=== PATIENT | male | born 1980 | race Caucasian/White ===

== ENCOUNTER 2016-11-27 10:52 | Emergency (ER) | payer OTHER ==
[2016-11-27] MEDS ORDERED: Ketorolac INJ* 30 MG/ML 1 ML VIAL IV PUSH ONE (11:26)
[2016-11-27] MEDS ORDERED: NS 0.9% 1000 ML* 2,000 ML IV ONE (11:26)
[2016-11-27] MEDS ORDERED: Ondansetron INJ* 2 MG/ML VIAL IV ONE (11:26)
[2016-11-27] MEDS ORDERED: Morphine INJ* 4 MG/ML 1 ML SYRINGE IV ONE (11:26)
[2016-11-27 11:40] LABS: Hematocrit 50 % (42-52); Hemoglobin 16.8 g/dl (14.0-18.0); Mean Corpuscular HGB Conc 34 g/dl (31-36); Mean Corpuscular Hemoglobin 31 pg (27-31); Mean Corpuscular Volume 91 fL (80-94); Mean Platelet Volume 9 um3 (7.4-10.4); Red Blood Count 5.44 10^6/ul (4.0-5.4); Red Cell Distribution Width 13 % (10.5-15)
[2016-11-27 11:54] LABS: Albumin 4.6 g/dL (3.2-5.2); BUN/Creatinine Ratio 9.4 (8-20); Calcium 9.9 mg/dL (8.6-10.3); EGFR Non-African American 88.6 (>60); Globulin 3.2 g/dL (2-4); Potassium 3.4 mmol/L (3.5-5.0); Total Bilirubin 0.8 mg/dL (0.2-1.0); Total Protein 7.8 g/dL (6.4-8.9)
--- NOTE | 2016-11-27 12:18 | RAD ---
INDICATION: Left flank pain COMPARISON: None TECHNIQUE: Noncontrast axial source images were acquired from the level hemidiaphragms to the symphysis pubis as part of CT imaging for renal stone. Lung bases: The lung bases are clear. Liver: The liver is normal in size. Noncontrast imaging shows no evidence of a hepatic mass or ductal dilatation. Gallbladder: There are no calcified gallstones. There is no evidence of wall thickening or pericholecystic fluid.. Spleen: The spleen is normal in size. The noncontrast CT appearance is normal. Pancreas: Noncontrast imaging shows no pancreatic mass or ductal dilitation. Adrenal glands: No masses are identified. Kidneys/Bladder: There is a 3 x 5 mm calculus in the distal left ureter near the UV junction with associated mild hydronephrosis and hydroureter. There are additional nonobstructive calculi in each kidney in the 3 mm range. Adenopathy: There is no evidence of intraperitoneal or retroperitoneal adenopathy. Evaluation is limited without oral contrast. Fluid collections: There are no free or localized fluid collections. Vessels: The aorta and iliac vessels are normal in caliber. There are no significant atherosclerotic changes. The IVC appears normal Pelvic organs: The prostate and seminal vesicles appear normal GI tract: Evaluation of the bowel is limited without oral contrast. The stomach, small bowel, and lower GI tract appear grossly normal. There are no obstructive findings. The appendix is visualized and appears normal. Soft tissues: No soft tissue abnormalities of the extraperitoneal abdomen or pelvis are identified. Osseous structures: There are no acute osseous findings. There is chronic L5 spondylolysis without associated anterolisthesis. IMPRESSION: MILD LEFT-SIDED HYDRONEPHROSIS AND HYDROURETER PRODUCED BY A 5 X 3 MM CALCULUS IN THE DISTAL LEFT URETER. ADDITIONAL NONOBSTRUCTIVE RENAL CALCULI ARE NOTED BILATERALLY.
--- NOTE | 2016-11-27 12:23 | ED ---
GI/ HPI - HPI Summary HPI Summary: 36M w/no PMH presents with left side flank pain for a today. He states the pain in intense. He has PMH of kidney stones and says it feels the same. He denies any fever, hematuria, dysuria, diarrhea, constipation. He admits to nausea and vomiting. He has not taken anything for his pain. [facility]. - History of Current Complaint Chief Complaint: EDFlankPain Time Seen by Provider: 11/27/16 11:10 Stated Complaint: LT SIDE FLANK PAIN Pain Intensity: 10 - Allergy/Home Medications Allergies/Adverse Reactions: Allergies Allergy/AdvReac Type Severity Reaction Status Date / Time Penicillins Allergy Anaphylatic Verified 11/27/16 11:43 Shock PMH/Surg Hx/FS Hx/Imm Hx Endocrine/Hematology History: Denies: Hx Anticoagulant Therapy Respiratory History: Denies: Hx Asthma Infectious Disease History: No Infectious Disease History: Denies: Traveled Outside the [place] in Last 30 Days - Family History Known Family History: Positive: Cardiac Disease - Social History Alcohol Use: None Substance Use Type: Reports: None Smoking Status (MU): Current Every Day Smoker Review of Systems Negative: Fever Negative: Chest Pain Negative: Shortness Of Breath Positive: Vomiting, Nausea. Negative: Diarrhea Positive: flank pain All Other Systems Reviewed And Are Negative: Yes Physical Exam Triage Information Reviewed: Yes Vital Signs On Initial Exam: Initial Vitals Temp Pulse Resp BP Pulse Ox 98.1 F 78 16 129/66 100 11/27/16 10:55 11/27/16 10:55 11/27/16 10:55 11/27/16 10:55 11/27/16 10:55 Vital Signs Reviewed: Yes Appearance: Positive: Pain Distress Skin: Positive: Warm, Dry Head/Face: Positive: Normal Head/Face Inspection Eyes: Positive: Normal, Conjunctiva Clear Respiratory/Lung Sounds: Positive: Clear to Auscultation, Breath Sounds Present Cardiovascular: Positive: Normal, RRR Abdomen Description: Positive: Soft, CVA Tenderness (L) Bowel Sounds: Positive: Present Diagnostics - Vital Signs Vital Signs Temp Pulse Resp BP Pulse Ox 11/27/16 11:44 24 11/27/16 10:55 98.1 F 78 16 129/66 100 - Laboratory Lab Results: Lab Results 11/27/16 11/27/16 Range/Units 11:20 11:20 WBC 11.0 H (3.5-10.8) 10^3/ul RBC 5.44 H (4.0-5.4) 10^6/ul Hgb 16.8 (14.0-18.0) g/dl Hct 50 (42-52) % MCV 91 (80-94) fL MCH 31 (27-31) pg MCHC 34 (31-36) g/dl RDW 13 (10.5-15) % Plt Count 207 (150-450) 10^3/ul MPV 9 (7.4-10.4) um3 Neut % (Auto) 68.1 (38-83) % Lymph % (Auto) 17.5 L (25-47) % [place] % (Auto) 11.0 H (1-9) % Eos % (Auto) 2.4 (0-6) % Baso % (Auto) 1.0 (0-2) % Absolute Neuts (auto) 7.5 (1.5-7.7) 10^3/ul Absolute Lymphs (auto) 1.9 (1.0-4.8) 10^3/ul Absolute Monos (auto) 1.2 H (0-0.8) 10^3/ul Absolute Eos (auto) 0.3 (0-0.6) 10^3/ul Absolute Basos (auto) 0.1 (0-0.2) 10^3/ul Absolute Nucleated RBC 0.01 10^3/ul Nucleated RBC % 0.1 Sodium 136 (133-145) mmol/L Potassium 3.4 L (3.5-5.0) mmol/L Chloride 102 (101-111) mmol/L Carbon Dioxide 21 L (22-32) mmol/L Anion Gap 13 H (2-11) mmol/L BUN 9 (6-24) mg/dL Creatinine 0.96 (0.67-1.17) mg/dL Est GFR ( Amer) 114.0 (>60) Est GFR (Non-Af Amer) 88.6 (>60) BUN/Creatinine Ratio 9.4 (8-20) Glucose 145 H (70-100) mg/dL Calcium 9.9 (8.6-10.3) mg/dL Total Bilirubin 0.80 (0.2-1.0) mg/dL AST 18 (13-39) U/L ALT 21 (7-52) U/L Alkaline Phosphatase 65 (34-104) U/L C-React Prot High Sens 0.47 mg/L Total Protein 7.8 (6.4-8.9) g/dL Albumin 4.6 (3.2-5.2) g/dL Globulin 3.2 (2-4) g/dL Albumin/Globulin Ratio 1.4 (1-3) Lipase 32 (11.0-82.0) U/L Result Diagrams: 11/27/16 11:20 11/27/16 11:20 Lab Statement: Any lab studies that have been ordered have been reviewed, and results considered in the medical decision making process. - CT ab CT Interpretation: Positive (See Comments) - IMPRESSION: MILD LEFT-SIDED HYDRONEPHROSIS AND HYDROURETER PRODUCED BY A 5 X 3 MM CALCULUS IN THE DISTAL LEFT URETER. ADDITIONAL NONOBSTRUCTIVE RENAL CALCULI ARE NOTED BILATERALLY. CT Interpretation Completed By: Radiologist DANIEL Course/Dx - Course Course Of Treatment: 36M w/no PMH presents with left side flank pain for a today. He states the pain in intense. He has PMH of kidney stones and says it feels the same. He denies any fever, hematuria, dysuria, diarrhea, constipation. He admits to nausea and vomiting. labs wbc 11 due to pain, u/a no infection. CT shows stone called [facility] said as long as pain controlled to d/ c and have call office. patient pain was controlled in ED. [facility] so will [facility] with [facility]. patient understands and agrees with plan - Diagnoses Differential Diagnoses - Male: Pyelonephritis, Ureteral Calculi, Urinary Tract Infection Provider Diagnoses: Kidney stone on left side Discharge - Discharge Plan Condition: Good Disposition: HOME Prescriptions: HYDROcodone/ACETAMIN 5-325 MG* [[place] 5-325 TAB*] 1 tab PO Q6H PRN #24 tab MDD 6 PRN Reason: Pain Ondansetron ODT TAB* [Zofran 4 MG Odt TAB*] 4 mg PO Q6H PRN #20 tab.odt PRN Reason: Nausea Tamsulosin CAP* [Flomax CAP*] 0.4 mg PO DAILY #10 cap Patient Education Materials: Kidney Stones (ED) Referrals: No Primary Care Phys,NOPCP [Primary Care Provider] - Additional Instructions: Take ibuprofen every 6 hours and narcotic as needed every 4-6 hours up two tablets Narcotic will make constipated Take Zofran every 6 hours for nausea Take Flomax daily starting tomorrow, first dose given in ED until stone expelled , make sure stand up slowly Strain urine for stone [facility] Return to ED if unable to manage pain at home, develop fever, severe vomiting or any new or worsening symptoms
[2016-11-27] MEDS ORDERED: HYDROmorphone* 1 MG/ML 1 ML SYR IV SLOW PU ONE (12:48)
[2016-11-27] MEDS ORDERED: Tamsulosin CAP* 0.4 MG PO ONE (13:04)
[2016-11-27 14:05] LABS: Urine Bacteria Absent (Absent); Urine Bilirubin Negative (Negative); Urine Glucose 1+(50 mg/dL) (Negative); Urine Nitrite Negative (Negative)
== END 2016-11-27 14:49 | disposition home or self-care (01) ==
LOC: ED 10:52
DX: N20.0 Calculus of kidney (principal); F17.200 Nicotine dependence, unspecified, uncomplicated; Z88.0 Allergy status to penicillin; N13.30 Unspecified hydronephrosis
CPT/HCPCS: 36415; 74176; 80053; 81003; 81015; 83690; 85025; 86141; 96360; 96374; 96375; 99283; J1170; J1885; J2270; J2405